=== PATIENT | female | born 1990 | race Caucasian/White ===

== ENCOUNTER 2020-10-31 17:04 | Emergency (ER) | payer MEDICAID, SELFPAY ==
[2020-10-31 17:54] VITALS: BP 145/82; PULSE 67; RESP 14; TEMP 36.6; BMI 27.2
--- NOTE | 2020-10-31 18:00 | ECG_ITS ---
Test Reason : CHEST PAIN Blood Pressure : / mmHG Vent. Rate : 058 BPM Atrial Rate : 058 BPM P-R Int : 186 ms QRS Dur : 094 ms QT Int : 440 ms P-R-T Axes : 057 041 032 degrees QTc Int : 431 ms Sinus bradycardia Otherwise normal ECG No previous ECGs available Referred By: Generic ED Physician Electronically Signed By:YEFRI GOFF
[2020-10-31 19:51] VITALS: BP 111/84; PULSE 62; PULSE 65; RESP 14; TEMP 36.8; O2SAT 100
--- NOTE | 2020-10-31 20:42 | PC.NURSE ---
pt presents to ED with intermittent chest pain since 1300 this afternoon that radiates to left chest, left arm, back and neck. pt alert and oriented x3. eye contact and verbal response appropriate for setting. speaks in full sentences and able to make needs known. respirations equal and unlabored. pt denies feeling short of breath. heart rate normal, pt on bedside surveillance monitor, normal sinus rhythm. pt denies chest pain at this time. has hx of anxiety but denies previous episodes of this type of chest pain. pt currently sitting comfortably in bed in semi fowlers, no distress noted. call swenson in reach.
[2020-10-31 20:56] VITALS: BP 105/73; PULSE 68; RESP 14; TEMP 36.7; O2SAT 99
--- NOTE | 2020-10-31 21:07 | ED.CHESTPAIN ---
HPI - Chest Pain General Chief Complaint: Chest Pain Stated Complaint: CP Time Seen by Provider: 10/31/20 21:07 Source: patient Mode of arrival: ambulatory Limitations: no limitations History of Present Illness HPI narrative: Patient history of anxiety, smoker with recurrent chest pain comes here for left-sided chest pain started at 13:00 sharp lasting for few seconds off and on with bilateral shoulder pain similar to that in the past but feels lasting little longer than in the past. Patient feels anxious also pain is sharp in character MD complaint: chest discomfort Timing of current episode: episodic Prior episodes: Yes Onset: during rest Pain location: left chest Related Data Allergies Allergy/AdvReac Type Severity Reaction Status Date / Time No Known Allergies Allergy Unverified 04/10/20 18:34 Review of Systems Review of Systems: Constitutional : No Weight loss, No Fever, No Chills ENT/Mouth : No sore throat, No Rhinorrhea Eyes: No Eye Pain, No Swelling Cardiovascular : + Chest Pain, no palpitations Respiratory : No Cough, No Sputum, no shortness of breath Gastrointestinal : no Nausea, No Vomiting, No Diarrhea, No abdominal Pain, no black stools Genitourinary : No Dysuria, No Urinary Frequency Musculoskeletal : No joint pain, No Myalgias, No Joint Swelling Skin : No Skin Lesions, No rash Neuro : No Weakness, No Numbness, No Dizziness, No Headache Psych : ++ Anxiety/Panic, No Depression Heme/Lymph: No Bruising, No Lymphadenopathy Endocrine : No Polyuria, No Polydipsia All other systems reviewed and are negative PMFSH Past Medical History Medical History Anxiety Substance abuse Social History Social History Alcohol intake: never Smoking Status: Current every day smoker Smoked in Last 30 Days: Yes Use of substances other than those prescribed or required for medical reasons: No Advance Directives: No Advance Directives Information Provided: No Physical Exam Vital Signs: Vital Signs: Last Vital Signs Temp 98.1 F 10/31/20 20:56 Pulse 64 10/31/20 21:16 Resp 14 10/31/20 21:16 BP 122/95 H 10/31/20 21:16 Pulse Ox 99 10/31/20 21:16 Body Mass Index 27.2 Appearance: Alert. Oriented X3. No acute distress. Anxious Eyes: Pupils equal, round and reactive to light. ENT: Pharynx normal. Neck: Normal inspection. Neck supple. CVS: Normal heart rate and rhythm. Pulses normal. Respiratory: No respiratory distress. Breath sounds normal. Abdomen: Soft and nontender. Bowel sounds are present, no mass palpable, no CVA tenderness Skin: Skin warm and dry. Normal skin color. Normal skin turgor. Extremities: No lower extremity edema. Neuro: Oriented X 3. No motor deficit. No sensory deficit. MDM - Chest Pain MDM Narrative Medical decision making narrative: Patient with atypical chest pain normal EKG normal cardiac enzymes his heart score of 1 advised to follow-up with PCP Lab Data Attestation: I reviewed the patient's lab results. Result diagrams: 10/31/20 21:23 10/31/20 21:23 Labs: Lab Results 10/31/20 10/31/20 10/31/20 Range/Units 21:23 21:23 21:23 WBC 5.5 (4.8-10.8) X10*3/uL RBC 4.51 (4.20-5.50) X10*6/uL Hgb 14.1 (12.0-16.0) g/dl Hct 41.5 (37-47) % MCV 92.0 (80-98) fL MCH 31.3 (27.0-33.0) pg MCHC 34.0 (31.0-35.0) g/dl RDW 11.6 (11.0-16.0) % Plt Count 175 (160-400) X10*3/uL MPV 11.3 (9.4-12.3) fL Immature Gran % (Auto) 0.2 (0.0-0.4) % Neut % (Auto) 54.2 (45-73) % Lymph % (Auto) 38.9 (20-40) % [place] % (Auto) 5.4 (2-11) % Eos % (Auto) 1.1 (0-4) % Baso % (Auto) 0.2 (0-2) % Lymph # (Auto) 2.2 (1.2-4.9) X10*3/uL [place] # (Auto) 0.3 (0.1-1.2) X10*3/uL Eos # (Auto) 0.1 (0.0-0.4) X10*3/uL Baso # (Auto) 0.0 (0.0-0.2) X10*3/uL Abs Immat Gran (auto) 0.01 (0.00-0.03) X10*3/uL Absolute Neuts (auto) 3.0 (2.0-8.3) X10*3/uL Absolute Nucleated RBC 0.000 (0.0-0.012) X10*3/uL Nucleated RBC % (auto) 0.0 (0.0-0.2) /100WBC Sodium 139 (135-145) mmol/L Potassium 4.2 (3.3-5.1) mmol/L Chloride 102 (96-108) mmol/L Carbon Dioxide 28 (22-29) mmol/L Anion Gap 13 (12-20) BUN 24 H (9-16) mg/dL Creatinine 0.84 (0.5-1.4) mg/dL Estim Creat Clear Calc 110.4 Estimated GFR > 60 Random Glucose 81 (60-115) mg/dL Calcium 9.4 (8.4-10.2) mg/dL Troponin I High Sens < 3.5 (<3.5-17.0) ng/L ECG Data ECG #1: Attestation: I personally reviewed and interpreted this ECG as follows: Interpretation: Sinus bradycardia with heart rate of 58 beats per minute normal intervals normal axis no acute ST T wave changes no acute ischemia Scores Heart Score History: -0- slightly suspicious ECG: -0- normal Age: -0- < or = 45 Risk factory: -1- 1 or 2 risk factors (Smoker) Troponin: -0- < or = normal limit Score: 1 Risk: 1.7% Discharge Plan Discharge Clinical Impression: Atypical chest pain Patient Disposition: Home, Self-Care Instructions: Chest Pain (ED) Additional Instructions: your chest pain is likely from anxiety. Follow-up with PCP Interventions: ED Discharge Assessment Last Done: 10/31/20 21:42 Discharge Date/Time: 10/31/20 21:43
[2020-10-31 21:16] VITALS: BP 122/95; PULSE 64; RESP 14; O2SAT 99
[2020-10-31 21:29] LABS: MANUAL DIFF FLAG NO
[2020-10-31 21:34] LABS: Basophils Percent Auto 0.2 % (0-2); Eosinophils Absolute Auto 0.1 X10*3/uL (0.0-0.4); Eosinophils Percent Auto 1.1 % (0-4); Hematocrit 41.5 % (37-47); Hemoglobin 14.1 g/dl (12.0-16.0); Imm Gran Abs Auto 0.01 X10*3/uL (0.00-0.03); Imm Gran Pct Auto 0.2 % (0.0-0.4); Lymphocytes Absolute Auto 2.2 X10*3/uL (1.2-4.9); Lymphocytes Percent Auto 38.9 % (20-40); Mean Corpuscular Hemoglobin 31.3 pg (27.0-33.0); Mean Platelet Volume 11.3 fL (9.4-12.3); Monocytes Absolute Auto 0.3 X10*3/uL (0.1-1.2); Monocytes Percent Auto 5.4 % (2-11); Neutrophils Percent Auto 54.2 % (45-73); Platelet Count 175 X10*3/uL (160-400); Red Blood Count 4.51 X10*6/uL (4.20-5.50); Red Cell Distribution Width 11.6 % (11.0-16.0); White Blood Count 5.5 X10*3/uL (4.8-10.8)
--- NOTE | 2020-10-31 21:43 | PC.NURSE ---
pt requesting to leave and wait for lab results at home, (Keven) aware and says ok for patient to be discharged and wait for results at home. pt has no questions or concerns at this time. pt alert and oriented x3. no signs of distress noted. ambulates independently and gait is steady.
[2020-10-31 21:48] LABS: Anion Gap 13 (12-20); Blood Urea Nitrogen 24 mg/dL (9-16); Calcium 9.4 mg/dL (8.4-10.2); Carbon Dioxide 28 mmol/L (22-29); Chloride 102 mmol/L (96-108); Creatinine Clr Calc Pharmacy 110.4; Estimated Glomerular Filt Rate > 60; Glucose Random 81 mg/dL (60-115); Potassium 4.2 mmol/L (3.3-5.1); Sodium 139 mmol/L (135-145)
[2020-10-31 21:55] LABS: Troponin-I High Sensitivity < 3.5 ng/L (<3.5-17.0)
== END 2020-10-31 21:43 | disposition home or self-care (01) ==
PROVIDERS: Emergency Provider Internal Medicine; PCP Nurse Practitioner Family
DX: R07.89 Other chest pain (principal); F41.9 Anxiety disorder, unspecified; F17.200 Nicotine dependence, unspecified, uncomplicated
CPT/HCPCS: 36415; 80048; 84484; 85025; 93005; 99283; 99284

== ENCOUNTER 2021-06-07 11:16 | Emergency (ER) | payer MEDICAID, SELFPAY ==
--- NOTE | ~2021-06-07 | XR_ITS ---
EXAMINATION: XR CHEST CLINICAL INFORMATION: Anterior chest pain COMPARISON: None TECHNIQUE: Frontal view of the chest was obtained. FINDINGS: No significant abnormality is noted involving the heart, lungs, mediastinum, bony thorax or soft tissues. XR/XR chest 1V IMPRESSION: Unremarkable examination.
[2021-06-07 11:21] VITALS: BP 144/110; PULSE 76; RESP 18; TEMP 36.6; O2SAT 96; BMI 27.3
--- NOTE | 2021-06-07 11:23 | ECG_ITS ---
Test Reason : chest pain Blood Pressure : / mmHG Vent. Rate : 070 BPM Atrial Rate : 070 BPM P-R Int : 162 ms QRS Dur : 076 ms QT Int : 370 ms P-R-T Axes : 058 043 021 degrees QTc Int : 399 ms Normal sinus rhythm RSR' or QR pattern in V1 suggests right ventricular conduction delay Otherwise normal ECG When compared with ECG of 31-OCT-2020 18:04, ST no longer elevated in Anterior leads Referred By: Generic ED Physician Electronically Signed By:KELLI ROGERS MD
--- NOTE | 2021-06-07 12:32 | ED.CHESTPAIN ---
HPI - Chest Pain General Chief Complaint: Chest Pain Stated Complaint: rapid heart beat Time Seen by Provider: 06/07/21 12:32 Source: patient Mode of arrival: ambulatory Limitations: no limitations History of Present Illness HPI narrative: This is a 31 years old the female with no past medical history presented to the emergency department complaining of chest pain palpitation for about 2 days. Denies any shortness of breath any diaphoresis any exertional symptoms MD complaint: chest pain Onset (ago): day(s) (2) Timing of current episode: constant Onset: during rest Pain location: left chest Pain radiation: none Quality: aching Treatment prior to arrival: none Risk Factors Coronary artery disease risk factors: none Related Data Allergies Allergy/AdvReac Type Severity Reaction Status Date / Time No Known Allergies Allergy Unverified 04/10/20 18:34 Review of Systems Review of Systems: Yes all other systems are reviewed and are negative Constitutional: Constitutional: Reports no additional constitutional complaints ENT: Reports system reviewed and no additional complaints, except as documented Cardiovascular: Cardiovascular: Reports no additional cardiovascular complaints Respiratory: Respiratory: Reports no additional respiratory complaints Gastrointestinal: Gastrointestinal: Reports no additional gastrointestinal complaints, Denies melena and Denies coffee ground emesis Neurologic: Reports system reviewed and no additional complaints, except as documented PMFSH Past Medical History Attestation statement: The following information was validated with the patient. Medical History Anxiety Substance abuse Social History Social History Alcohol intake: never Advance Directives: No Advance Directives Information Provided: No Physical Exam Vital Signs: Vital Signs: Last Vital Signs Temp 98.5 F 06/07/21 13:55 Pulse 69 06/07/21 13:55 Resp 18 06/07/21 13:55 BP 133/81 06/07/21 13:55 Pulse Ox 99 06/07/21 13:55 Body Mass Index 27.3 Const: General: cooperative Nutritional Appearance: average body habitus and well nourished HENMT: Head: Yes normal to inspection Face and sinus: Yes normal facial exam Mouth: Normal oral and palatal mucosa present Neck: Neck: Yes normal visual inspection Chest: Chest palpation & inspection: normal inspection of the chest and normal palpation of entire chest wall Resp: Effort & Inspection: normal respiratory effort Auscultation: clear to auscultation bilaterally Cardio: Jugular venous distension: no JVD Rate: regular rate Rhythm: regular rhythm GI: Inspection: Yes normal to inspection Palpation (GI): Soft to palpation, nontender, no guarding and not rigid Auscultation: normal bowel sounds Skin: General skin exam: no rashes or lesions noted, elasticity normal and turgor normal Lesions: no lesions Rashes: no rashes Course Course Course Narrative: Workup is negative troponin negative after 24 hour chest pain chest x-rays within normal limits will discharge the patient home MDM - Chest Pain Lab Data Result diagrams: 06/07/21 13:00 06/07/21 13:00 Labs: Lab Results 06/07/21 06/07/21 06/07/21 Range/Units 13:00 13:00 13:00 WBC 6.7 (4.8-10.8) X10*3/uL RBC 4.75 (4.20-5.50) X10*6/uL Hgb 14.7 (12.0-16.0) g/dl Hct 41.8 (37.0-47.0) % MCV 88.0 (80.0-98.0) fL MCH 30.9 (27.0-33.0) pg MCHC 35.2 H (31.0-35.0) g/dl RDW 11.7 (11.0-16.0) % Plt Count 190 (160-400) X10*3/uL MPV 10.9 (9.4-12.3) fL Immature Gran % (Auto) 0.3 (0.0-0.4) % Neut % (Auto) 72.1 (45-73) % Lymph % (Auto) 21.1 (20-40) % [place] % (Auto) 5.8 (2-11) % Eos % (Auto) 0.4 (0-4) % Baso % (Auto) 0.3 (0-2) % Lymph # (Auto) 1.4 (1.2-4.9) X10*3/uL [place] # (Auto) 0.4 (0.1-1.2) X10*3/uL Eos # (Auto) 0.0 (0.0-0.4) X10*3/uL Baso # (Auto) 0.0 (0.0-0.2) X10*3/uL Abs Immat Gran (auto) 0.02 (0.00-0.03) X10*3/uL Absolute Neuts (auto) 4.8 (2.0-8.3) x10*3/uL Absolute Nucleated RBC 0.000 (0.0-0.012) X10*3/uL Nucleated RBC % (auto) 0.0 (0.0-0.2) /100WBC Sodium 138 (135-145) mmol/L Potassium 4.4 (3.3-5.1) mmol/L Chloride 105 (96-108) mmol/L Carbon Dioxide 23 (22-29) mmol/L Anion Gap 14 (12-20) BUN 13 (9-16) mg/dL Creatinine 0.82 (0.5-1.4) mg/dL Estim Creat Clear Calc 112.4 Estimated GFR > 60 Random Glucose 85 (60-115) mg/dL Calcium 9.3 (8.4-10.2) mg/dL Troponin I High Sens < 3.5 (<3.5-17.0) ng/L ECG Data ECG #1: Attestation: I personally reviewed and interpreted this ECG as follows: Pacemaker function: normal pacer function Attending Attestation Normal sinus rhythm a rate 70 ST-T isoelectric Discharge Plan Discharge Clinical Impression: Chest pain, Palpitations Patient Disposition: Home, Self-Care Instructions: Chest Pain (ED) Additional Instructions: Your blood work and chest x-ray were within normal limit electrocardiogram was within normal limit return to the emergency room if you worse any concern Referrals: Kobe Burroughs MD [Physician] - 3 days Interventions: ED Discharge Assessment Last Done: 06/07/21 15:02 Discharge Date/Time: 06/07/21 15:03
[2021-06-07 13:05] LABS: MANUAL DIFF FLAG NO
[2021-06-07 13:06] LABS: Basophils Percent Auto 0.3 % (0-2); Eosinophils Percent Auto 0.4 % (0-4); Hematocrit 41.8 % (37.0-47.0); Hemoglobin 14.7 g/dl (12.0-16.0); Imm Gran Abs Auto 0.02 X10*3/uL (0.00-0.03); Imm Gran Pct Auto 0.3 % (0.0-0.4); Lymphocytes Absolute Auto 1.4 X10*3/uL (1.2-4.9); Lymphocytes Percent Auto 21.1 % (20-40); Mean Corpuscular HGB Conc 35.2 g/dl (31.0-35.0); Mean Corpuscular Hemoglobin 30.9 pg (27.0-33.0); Mean Platelet Volume 10.9 fL (9.4-12.3); Monocytes Absolute Auto 0.4 X10*3/uL (0.1-1.2); Monocytes Percent Auto 5.8 % (2-11); Neutrophils Absolute Auto 4.8 x10*3/uL (2.0-8.3); Neutrophils Percent Auto 72.1 % (45-73); Platelet Count 190 X10*3/uL (160-400); Red Blood Count 4.75 X10*6/uL (4.20-5.50); Red Cell Distribution Width 11.7 % (11.0-16.0); White Blood Count 6.7 X10*3/uL (4.8-10.8)
[2021-06-07 13:19] LABS: Anion Gap 14 (12-20); Blood Urea Nitrogen 13 mg/dL (9-16); Calcium 9.3 mg/dL (8.4-10.2); Carbon Dioxide 23 mmol/L (22-29); Chloride 105 mmol/L (96-108); Creatinine Clr Calc Pharmacy 112.4; Estimated Glomerular Filt Rate > 60; Glucose Random 85 mg/dL (60-115); Potassium 4.4 mmol/L (3.3-5.1); Sodium 138 mmol/L (135-145)
[2021-06-07 13:26] LABS: Troponin-I High Sensitivity < 3.5 ng/L (<3.5-17.0)
[2021-06-07 13:55] VITALS: BP 133/81; PULSE 69; RESP 18; TEMP 36.9; O2SAT 99
== END 2021-06-07 15:03 | disposition home or self-care (01) ==
PROVIDERS: Emergency Provider Emergency Medicine; PCP Nurse Practitioner Family
DX: R00.2 Palpitations (principal); R07.9 Chest pain, unspecified
CPT/HCPCS: 36415; 71045; 80048; 84484; 85025; 93005; 99283; 99284

== ENCOUNTER 2021-10-09 18:33 | Emergency (ER) | payer MEDICAID, SELFPAY ==
--- NOTE | ~2021-10-09 | XR_ITS ---
EXAMINATION: XR CHEST CLINICAL INFORMATION: Chest pain, shortness of breath COMPARISON: 06/07/2021 TECHNIQUE: 2 views of the chest were obtained. FINDINGS: There is a suggestion of mild central bronchial wall thickening most notable on the lateral view. No focal consolidation or mass. No pleural effusion or pneumothorax. Normal heart size. Regional skeleton intact. XR/XR chest 2V IMPRESSION: Central bronchial wall thickening is present, which could reflect bronchitis or reactive airways disease. This is not the typical appearance of viral pneumonitis.
[2021-10-09 19:33] VITALS: PULSE 73; RESP 16; TEMP 36.8; O2SAT 100; BMI 28.1
--- NOTE | 2021-10-09 19:40 | ECG_ITS ---
Test Reason : CHEST WALL PAIN Blood Pressure : / mmHG Vent. Rate : 057 BPM Atrial Rate : 057 BPM P-R Int : 180 ms QRS Dur : 088 ms QT Int : 428 ms P-R-T Axes : 010 034 006 degrees QTc Int : 416 ms Sinus bradycardia Otherwise normal ECG When compared with ECG of 07-JUN-2021 11:30, No significant change was found Referred By: Generic ED Physician Electronically Signed By:YEFRI GOFF
[2021-10-09 20:38] VITALS: BP 125/76
--- NOTE | 2021-10-09 20:49 | ED_ITS ---
HPI - SOB/Dyspnea General Chief Complaint: Upper Respiratory Symptoms Stated Complaint: chest pains/tightness Time Seen by Provider: 10/09/21 19:40 Source: patient Mode of arrival: ambulatory Limitations: no limitations History of Present Illness HPI Narrative: Patient is a 31 old female with past medical history of substance abuse currently on methadone. She presents to the emergency department for evaluation upper respiratory congestion and in addition to chest pain he and shortness breath. She reports that her and her son has been ill with congestion and cough for 2 days, took an at-home COVID-19 test yesterday which was negative. She is having left anterior chest pain that is sharp and intermittent, made worse with deep inspiration. She feels as though she is unable to take a full breath and gets short breath intermittently. She states that this has been ongoing for about 1 year, but she was free from chest pain and shortness of breath for 3-4 weeks until 2 days ago. She has been evaluated for similar complaints in the past and states ?they just think I am crazy and it is anxiety?. Reports that she has been seen by her primary care provider as well as emergency department and has had EKG's and chest x-rays. She is not on any oral contraceptives, denies personal history of cancer/DVT/PE, denies drug usage, denies recent surgery or immobilization. She is a cigarette smoker. Related Data Previous Rx's Medication Instructions Recorded albuterol sulfate 90 mcg/actuation 2 puff INHALATION Q6H PRN #6.7 g 10/09/21 aerosol inhaler prednisone 20 mg tablet 40 mg PO DAILY 5 Days #10 tab 10/09/21 Allergies Allergy/AdvReac Type Severity Reaction Status Date / Time No Known Allergies Allergy Unverified 04/10/20 18:34 Review of Systems Review of Systems: Constitutional : No Weight loss, No Fever, No Chills ENT/Mouth :? No sore throat, No Rhinorrhea Eyes: No Eye Pain, No Swelling Cardiovascular : pos Chest Pain, pos SOB, no Dyspnea on Exertion, No Orthopnea, No Edema, No Palpitations Respiratory : Pos Cough, No Sputum Gastrointestinal : No Nausea, No Vomiting, No Diarrhea, No abdominal Pain, No Hematochezia, No Melena Genitourinary : No Dysuria, No Urinary Frequency Musculoskeletal : No joint pain, No Myalgias, No Joint Swelling Skin : No Skin Lesions, No rash Neuro : No Weakness, No Numbness, No Dizziness, No Headache Psych : No Anxiety/Panic, No Depression Heme/Lymph: No Bruising, No Lymphadenopathy Endocrine : No Polyuria, No Polydipsia Yes all other systems are reviewed and are negative [facility] Past Medical History Attestation statement: The following information was validated with the patient. Source: old records reviewed Medical History Anxiety Substance abuse Social History Social History Alcohol intake: never Advance Directives: No Patient : No Physical Exam Vital Signs: Vital Signs: Last Vital Signs Temp 98.3 F 10/09/21 19:33 Pulse 73 10/09/21 19:33 Resp 16 10/09/21 19:33 BP 125/76 10/09/21 20:38 Pulse Ox 100 10/09/21 19:33 BMI result Body Mass Index 28.1 Vital signs have been reviewed as normal and appeared to be correct. Blood pressure normal.? Heart rate normal.? Respiration rate normal. Temperature normal.? Oxygen saturation normal. Appearance: Alert.?Oriented to person, place and time. No acute distress.?Normal affect. Eyes: Pupils equal, round and reactive to light.? ENT: Pharynx normal.?? Neck: Normal inspection.? Neck supple.?? CVS: Heart sounds normal. Normal heart rate and rhythm.? Pulses normal.?? Respiratory: No respiratory distress.? Lung sounds clear to auscultation bilaterally?? Abdomen: Soft and non-tender. Normoactive bowel sounds. No pulsatile mass.?? Skin: Skin warm and dry.? Normal skin color.? Normal skin turgor.?? Extremities: No lower extremity edema.? No calf ttp? Neuro: Moves all extremities spontaneously. Sensation intact bilaterally. CN II- XII intact. No focal neuro deficits. Ambulates with normal steady gait. Course Course Course Narrative: Patient is a 31-year-old female being evaluated for upper respiratory congestion, chest pain, and shortness of breath. Will obtain CBC to evaluate for leukocytosis/ anemia, BMP to evaluate for abnormal electrolytes /abnormal renal function, EKG and troponin to evaluate for ischemia/ACS, D-Dimer to exclude PE, rish factor only cigarette smoking. Chest x-ray to evaluate for consolidation/ infiltrate/ mass/ pulmonary congestion. COVID-19 and influenza testing to be obtained. Disposition will be pending results. Reevaluation(s) Reevaluation #1: Chest x-ray reveals mild central bronchial thickening to, may be reflective bronchitis or airway disease. CBC, BMP are normal. D-dimer is negative therefore unlikely to be PE. Troponin < 3.5 EKG reveals sinus bradycardia no ac arnold concerns for ischemia, and no risk factors therefore unlikely to be ACS. COVID-19 and influenza testing are both negative. Patient's symptoms seem most consistent with possible bronchitis or reactive airway disease, given the extent of her symptoms intermittently over the past year will provide patient with albuterol inhaler, and short course of prednisone. Discussed results and findings with patient, all questions were answered, discussed reasons to return to the emergency department, and follow-up with PCP in 5 days. Time: 23:00 MDM - SOB/Dyspnea Medical Records Attestation: I reviewed the patient's medical records. Lab Data Attestation: I reviewed the patient's lab results. Result diagrams: 10/09/21 22:03 10/09/21 22:03 Labs: Lab Results 10/09/21 10/09/21 10/09/21 Range/Units 22:03 22:03 22:03 WBC 7.7 (4.8-10.8) X10*3/uL RBC 4.59 (4.20-5.50) X10*6/uL Hgb 14.2 (12.0-16.0) g/dl Hct 40.7 (37.0-47.0) % MCV 88.7 (80.0-98.0) fL MCH 30.9 (27.0-33.0) pg MCHC 34.9 (31.0-35.0) g/dl RDW 11.6 (11.0-16.0) % Plt Count 171 (160-400) X10*3/uL MPV 11.1 (9.4-12.3) fL Immature Gran % (Auto) 0.1 (0.0-0.4) % Neut % (Auto) 68.5 (45-73) % Lymph % (Auto) 25.5 (20-40) % [place] % (Auto) 5.2 (2-11) % Eos % (Auto) 0.6 (0-4) % Baso % (Auto) 0.1 (0-2) % Lymph # (Auto) 2.0 (1.2-4.9) X10*3/uL [place] # (Auto) 0.4 (0.1-1.2) X10*3/uL Eos # (Auto) 0.1 (0.0-0.4) X10*3/uL Baso # (Auto) 0.0 (0.0-0.2) X10*3/uL Abs Immat Gran (auto) 0.01 (0.00-0.03) X10*3/uL Absolute Neuts (auto) 5.3 (2.0-8.3) x10*3/uL Absolute Nucleated RBC 0.000 (0.0-0.012) X10*3/uL Nucleated RBC % (auto) 0.0 (0.0-0.2) /100WBC D-Dimer High Sensitivty NG/ML Sodium (135-145) mmol/L Potassium (3.3-5.1) mmol/L Chloride (96-108) mmol/L Carbon Dioxide (22-29) mmol/L Anion Gap (12-20) BUN (9-16) mg/dL Creatinine (0.5-1.4) mg/dL Estim Creat Clear Calc Estimated GFR Random Glucose (60-115) mg/dL Calcium (8.4-10.2) mg/dL Troponin I High Sens < 3.5 (<3.5-17.0) ng/L COVID-19 ([facility]) (Negative) COVID-19 Clin Com Influenza Type A ([facility]IAM) Negative (Negative) Influenza Type B ([facility]) Negative (Negative) Influenza A & B Note See Note 10/09/21 10/09/21 10/09/21 Range/Units 22:03 22:03 22:03 WBC (4.8-10.8) X10*3/uL RBC (4.20-5.50) X10*6/uL Hgb (12.0-16.0) g/dl Hct (37.0-47.0) % MCV (80.0-98.0) fL MCH (27.0-33.0) pg MCHC (31.0-35.0) g/dl RDW (11.0-16.0) % Plt Count (160-400) X10*3/uL MPV (9.4-12.3) fL Immature Gran % (Auto) (0.0-0.4) % Neut % (Auto) (45-73) % Lymph % (Auto) (20-40) % [place] % (Auto) (2-11) % Eos % (Auto) (0-4) % Baso % (Auto) (0-2) % Lymph # (Auto) (1.2-4.9) X10*3/uL [place] # (Auto) (0.1-1.2) X10*3/uL Eos # (Auto) (0.0-0.4) X10*3/uL Baso # (Auto) (0.0-0.2) X10*3/uL Abs Immat Gran (auto) (0.00-0.03) X10*3/uL Absolute Neuts (auto) (2.0-8.3) x10*3/uL Absolute Nucleated RBC (0.0-0.012) X10*3/uL Nucleated RBC % (auto) (0.0-0.2) /100WBC D-Dimer High Sensitivty < 150 NG/ML Sodium 139 (135-145) mmol/L Potassium 3.9 (3.3-5.1) mmol/L Chloride 103 (96-108) mmol/L Carbon Dioxide 26 (22-29) mmol/L Anion Gap 14 (12-20) BUN 14 (9-16) mg/dL Creatinine 0.83 (0.5-1.4) mg/dL Estim Creat Clear Calc 112.5 Estimated GFR > 60 Random Glucose 87 (60-115) mg/dL Calcium 9.8 (8.4-10.2) mg/dL Troponin I High Sens (<3.5-17.0) ng/L COVID-19 ([facility]) Negative (Negative) COVID-19 Clin Com See Note Influenza Type A ([facility]) (Negative) Influenza Type B ([facility]) (Negative) Influenza A & B Note Imaging Data Chest x-ray: Radiologist's impression: XR/XR chest 2V IMPRESSION: Central bronchial wall thickening is present, which could reflect bronchitis or reactive airways disease. This is not the typical appearance of viral pneumonitis. ECG Data Attestation: I personally reviewed and interpreted this ECG as follows: ECG interpretation date: 10/09/21 ECG interpretation time: 20:55 Prior ECG tracings: available for review Interpretation: Rate: 57 Rhythm:? Sinus bradycardia [place]:? Normal Normal P waves.? Normal JUAN.?? Normal QRS complex.?? ST T wave :??No ST elevation, no ST depression, no T-wave inversion qTC: 416 prior studies:? May 2021 The study has been interpreted contemporaneously by me. Discharge Plan Discharge Clinical Impression: Atypical chest pain, Upper respiratory infection Patient Disposition: Home, Self-Care Instructions: Acute Bronchitis (ED), Noncardiac Chest Pain (ED) Additional Instructions: Chest x-ray that we did today revealed findings that may be consistent with a bronchitis or reactive airway disease. You should contact your primary care provider and schedule a follow-up appointment in 5 days for further evaluation. You have been given a new prescription for an albuterol inhaler, and a course of prednisone which you will take daily for 5 days. Please return to the emergency department with any new or worsening symptoms or concerns Prescriptions: New albuterol sulfate 90 mcg/actuation HFA aerosol inhaler 2 puff inhalation Q6H PRN (Reason: shortness of breath or wheezing) Qty: 6.7 0RF prednisone 20 mg tablet 40 mg PO DAILY 5 Days Qty: 10 0RF
[2021-10-09 22:09] LABS: MANUAL DIFF FLAG NO
[2021-10-09 22:10] LABS: Basophils Percent Auto 0.1 % (0-2); Eosinophils Absolute Auto 0.1 X10*3/uL (0.0-0.4); Eosinophils Percent Auto 0.6 % (0-4); Hematocrit 40.7 % (37.0-47.0); Hemoglobin 14.2 g/dl (12.0-16.0); Imm Gran Abs Auto 0.01 X10*3/uL (0.00-0.03); Imm Gran Pct Auto 0.1 % (0.0-0.4); Lymphocytes Percent Auto 25.5 % (20-40); Mean Corpuscular HGB Conc 34.9 g/dl (31.0-35.0); Mean Corpuscular Hemoglobin 30.9 pg (27.0-33.0); Mean Corpuscular Volume 88.7 fL (80.0-98.0); Mean Platelet Volume 11.1 fL (9.4-12.3); Monocytes Absolute Auto 0.4 X10*3/uL (0.1-1.2); Monocytes Percent Auto 5.2 % (2-11); Neutrophils Absolute Auto 5.3 x10*3/uL (2.0-8.3); Neutrophils Percent Auto 68.5 % (45-73); Platelet Count 171 X10*3/uL (160-400); Red Blood Count 4.59 X10*6/uL (4.20-5.50); Red Cell Distribution Width 11.6 % (11.0-16.0); White Blood Count 7.7 X10*3/uL (4.8-10.8)
[2021-10-09 22:19] LABS: D Dimer High Sensitivity < 150 NG/ML
[2021-10-09 22:27] LABS: Anion Gap 14 (12-20); Blood Urea Nitrogen 14 mg/dL (9-16); Calcium 9.8 mg/dL (8.4-10.2); Carbon Dioxide 26 mmol/L (22-29); Chloride 103 mmol/L (96-108); Creatinine Clr Calc Pharmacy 112.5; Estimated Glomerular Filt Rate > 60; Glucose Random 87 mg/dL (60-115); Potassium 3.9 mmol/L (3.3-5.1); Sodium 139 mmol/L (135-145)
[2021-10-09 22:30] LABS: Influenza A Negative (Negative); Influenza B2 Negative (Negative)
[2021-10-09 22:31] LABS: COVID-19 Test Negative (Negative); IDNOW Serial# 55D5AD1C
[2021-10-09 22:33] LABS: Troponin-I High Sensitivity < 3.5 ng/L (<3.5-17.0)
[2021-10-09 23:19] VITALS: BP 138/91; PULSE 72; RESP 16; TEMP 36.7; O2SAT 99
== END 2021-10-09 23:53 | disposition home or self-care (01) ==
PROVIDERS: Nurse Practitioner Family; Emergency Provider Emergency Medicine
DX: R07.89 Other chest pain (principal); J06.9 Acute upper respiratory infection, unspecified; Z20.822 Contact with and (suspected) exposure to COVID-19; F19.10 Other psychoactive substance abuse, uncomplicated
CPT/HCPCS: 36415; 71046; 80048; 84484; 85025; 85379; 87502; 87635; 93005; 99283; 99284